=== PATIENT | female | born 1965 | race Caucasian/White ===

== ENCOUNTER 2017-10-05 09:20 | Day surgery (SDC) | payer OTHER ==
[2017-10-05] MEDS: NS 1,000 ML IV (11:01)
[2017-10-05] MEDS ORDERED: LIDOCAINE 2% INJ 100 MG/5 ML SDV (FOR ANES.) As Ordered (11:27)
[2017-10-05] MEDS ORDERED: PROPOFOL 200 MG/20 ML VIAL As Ordered ×2 (11:27→11:34)
[2017-10-05] MEDS ORDERED: ONDANSETRON 4MG/2ML VIAL (J2405) IV (12:00)
== END 2017-10-05 12:13 | disposition home or self-care (01) ==
LOC: M OPP 09:20
DX: R19.4 Change in bowel habit (principal); R19.7 Diarrhea, unspecified; K64.0 First degree hemorrhoids; K57.30 Diverticulosis of large intestine without perforation or abscess without bleeding; K21.9 Gastro-esophageal reflux disease without esophagitis; R12 Heartburn; E78.5 Hyperlipidemia, unspecified; F41.9 Anxiety disorder, unspecified; Z87.442 Personal history of urinary calculi; F17.210 Nicotine dependence, cigarettes, uncomplicated; Z88.2 Allergy status to sulfonamides; Z79.899 Other long term (current) drug therapy; Z80.3 Family history of malignant neoplasm of breast
CPT/HCPCS: 45380

== ENCOUNTER → 2018-09-01 | Outpatient (CLI) | payer OTHER ==
[~2018-09-01] MED LIST: EFFE150C2 PO
--- NOTE | 2018-09-01 12:00 | REPMRS ---
Patient History The patient states she had a clinical breast exam in 08/2018. Patient is postmenopausal. Family history of breast cancer at age 60 in mother, breast cancer at age 50 in sister, breast cancer at age 50 or over in maternal aunt. Benign stereotatic breast biopsy of the right breast, April 28, 2012. No Hormone Replacement Therapy Patient's BMI is 21.7. 3D TOMOSYNTHESIS WAS PERFORMED. Digital Woman Screen Mammo: September 01, 2018 - Exam #: [id number] Bilateral CC and MLO view(s) were taken. Technologist: Dafne Alexandra, Technologist Prior study comparison: April 26, 2015, digital woman screen mammo performed at [facility]. December 22, 2012, right breast digital mammo diagnostic unilateral, performed at [facility]. FINDINGS: The breast tissue is heterogeneously dense. This may lower the sensitivity of mammography. There has been no change in the appearance of the mammogram from the prior studies. There is a moderate amount of residual fibroglandular tissue which is fairly symmetric. There is no interval development of dominant mass, areas of architectural distortion, or clustered microcalcification typical of malignancy. Assessment: BI-RADS/ACR category 1 mammogram. Negative Mammogram. Recommendation Routine screening mammogram in 1 year (for women over age 40). This mammogram was interpreted with the aid of an FDA-approved computer-aided dectection system. THE LIFETIME RISK OF BREAST CANCER IS 22.8%, THEREFORE SUPPLEMENTAL SCREENING MRI OF THE BREASTS IS RECOMMENDED IN 6 MONTHS. Electronically Signed By: Owen Rojas MD 09/01/18 1200
== END ==
LOC: M WHC 09:35
PROVIDERS: ATTEND Nurse Practitioner Women's Health
DX: Z12.31 Encounter for screening mammogram for malignant neoplasm of breast (principal); Z80.3 Family history of malignant neoplasm of breast

== ENCOUNTER → 2018-09-01 | Outpatient (REF) | payer OTHER ==
[2018-09-04 00:07] LABS: HPV HYBRID CAPTURE II Negative (Negative)
== END ==
LOC: M SFHCWAGY 13:09
PROVIDERS: ATTEND Nurse Practitioner Women's Health
DX: Z12.4 Encounter for screening for malignant neoplasm of cervix (principal)

== ENCOUNTER → 2018-10-14 | Outpatient (REF) | payer OTHER | LOC: M SFHCWAGY 10:48 | PROVIDERS: ATTEND Nurse Practitioner Women's Health | DX: N83.202 Unspecified ovarian cyst, left side (principal) ==

== ENCOUNTER → 2018-10-14 | Outpatient (CLI) | payer OTHER ==
--- NOTE | 2018-10-14 13:09 | REP ---
REASON: History of left ovarian cyst. COMPARISON: None. Transvesical and transvaginal imaging was obtained. The uterus measures 6.5 x 2.3 x 3.0 cm. The parenchymal echo pattern is within normal limits. The endometrial echo complex is within normal limits measuring 3 mm in its greatest thickness. The right ovary measures 1.9 x 1.2 x 1.6 cm and is within normal limits with an RI of 0.53. The left ovary measures 3.9 x 2.8 x 4.5 cm. Within the left ovary there is a 4.7 x 4.6 x 3.4 cm sized anechoic structure which exhibits posterior wall enhancement and increased through transmission. A small hypoechoic nodule was seen along the posterior cyst wall measuring 7 mm. No marko papillary projections or thick internal septations were identified. The left ovarian RI is 0.55. The urinary bladder measures 9.0 x 5.0 x 9.0 cm. IMPRESSION: There is a left ovarian cyst as described above. A 2 month followup examination is recommended to ensure resolution. I see the reason for the exam is left ovarian cyst, however, there are no prior examinations that I have to compare to this study. If there is an outside prior exam showing a left ovarian cyst which is 2 months old or older, then I would recommend button grader consultation at this time with pre and post gadolinium enhanced pelvic MRI. Electronically Signed by Santos Mello DO 10/14/2018 01:18 P
== END ==
LOC: M RAD 11:30
PROVIDERS: ATTEND Physician Assistant Medical
DX: N83.202 Unspecified ovarian cyst, left side (principal)

== ENCOUNTER → 2019-02-08 | Outpatient (CLI) | payer OTHER ==
--- NOTE | 2019-02-08 13:59 | REP ---
PELVIC SONOGRAPHY: HISTORY: Left ovary cyst. Comparison pelvic sonography October 14, 2018 several 4.7 cm left ovarian cyst. FINDINGS: Transabdominal and endovaginal scanning are performed. Uterine dimensions remain normal at 7.2 x 2.3 x 3.6 cm. Endometrial echo is 0.3 cm thick. No focal uterine mass is seen. There are a few calcifications noted in the uterine myometrium as before. A normal right ovary seen measuring 2.2 x 1.1 x 1.2 cm. Doppler flow was observed in the right ovary with resistive index 0.63. Left ovary dimensions are 4.8 x 3.0 x 5.1 cm. Flow was observed by Doppler in the left ovary with resistive index 0.67. The left ovary contains a 4.1 x 3.2 x 4.7 cm cyst. There is subtle wall thickening and irregularity. No ascites is seen. IMPRESSION: Complex 4.7 cm cystic lesion again seen left ovary. Persisting, unchanged from the comparison study. Neoplastic cystic lesion is not excluded. Electronically Signed by Dipak Kinsey MD 02/08/2019 03:32 P
== END ==
LOC: M RAD 10:56
PROVIDERS: ATTEND Nurse Practitioner Women's Health
DX: N83.202 Unspecified ovarian cyst, left side (principal)

== ENCOUNTER → 2019-02-18 | Outpatient (CLI) | payer OTHER ==
[~2019-02-18] MED LIST changes: +PROHANCE 279.3MG/ML 5ML VIAL (A9576) As Ordered ONE
--- NOTE | 2019-02-18 13:56 | REP ---
MRI PELVIS WITH AND WITHOUT CONTRAST: TECHNIQUE: Multiple sequences obtained in the axial, coronal, and sagittal planes prior to and following the intravenous administration of 10 mL ProHance. Correlation made with prior ultrasound 02/08/2019. There is an oval cyst in the anterior aspect of the left adnexa. This measures approximately 3.9 x 4.3 x 5.0 cm. A relatively thin enhancing septation is seen anteriorly in the left portion of the cyst. The cyst is not hemorrhagic. There is mild diffuse enhancement of a slightly thickened wall. There is asymmetric mild wall thickening and enhancement adjacent to the septation. This is anteriorly on the left side of the cyst. No other cystic or solid pelvic mass is seen. There is no adenopathy or free fluid in the pelvis. Uterus is deviated to the right of midline. Uterine length is approximately 6.8 cm. Endometrium is 2 mm in thickness with no endometrial fluid collection. Normal marrow signal is seen of the visualized osseous structures. IMPRESSION: Left adnexal cyst measures 3.9 x 4.3 x 5.0 cm. There is no hemorrhagic component. Relatively thin enhancing septation is seen in the anterior lateral portion of the cyst with mild adjacent wall thickening of the cyst. Elsewhere, there is relatively thin rim enhancement of the cyst. Since this is not a completely simple cyst, I would recommend surgical excision. No other evidence of mass, adenopathy, or free fluid in the pelvis. Electronically Signed by Owen Rojas MD 02/18/2019 05:14 P
== END ==
LOC: M RAD 10:07
PROVIDERS: ATTEND Nurse Practitioner Women's Health
DX: N83.202 Unspecified ovarian cyst, left side (principal)
CPT/HCPCS: 72197; A9576

== ENCOUNTER → 2019-04-14 | Outpatient (CLI) | payer OTHER ==
--- NOTE | 2019-04-14 16:52 | REP ---
Bilateral breast MRI study without and with IV gadolinium: History: Positive family history of breast carcinoma. Dense breast tissue on mammography. Comparison mammography September 01, 2018. Technique: Three Ria MRI imaging was performed with a dedicated breast coil. Axial, coronal, and sagittal T1 and T2-weighted scans were obtained with and without fat saturation in the usual fashion. The study includes dynamically acquired post gadolinium enhanced imaging subtraction imaging. Maximal intensity projection and multiplanar re-formation imaging is included as well. The study was interpreted with the aid of [employer], an FDA approved computer-aided detection (CAD) software program, on a dedicated breast MRI work station. The gadolinium enhancement dose is 10 ml of intravenous ProHance. Findings: There is a mild pattern of fibroglandular tissue bilaterally. There is minimal background parenchymal enhancement. There is no evidence of axillary adenopathy or significant breast cystic change. No suspicious focal abnormality is seen on high-resolution pre or postcontrast T1 and T2-weighted scans. Dynamically acquired sequential post contrast images show no suspicious focus of enhancement and/or washout in either breast to suggest malignancy. Subtraction images show no additional abnormality. Impression: BIRADS category 1 negative findings. Patient's whose lifetime breast cancer risk assessment is greater than 20% merit annual screening breast MRI scanning. This in addition to annual screening mammography. Electronically Signed by Dipak Kinsey MD 04/14/2019 05:07 P
== END ==
LOC: M RAD 14:21
PROVIDERS: ATTEND Nurse Practitioner Women's Health
DX: R92.2 Inconclusive mammogram (principal); Z80.3 Family history of malignant neoplasm of breast
CPT/HCPCS: A9576; C8908

== ENCOUNTER → 2020-01-18 | Outpatient (CLI) | payer OTHER ==
[~2020-01-18] MED LIST changes: -PROHANCE 279.3MG/ML 5ML VIAL (A9576) As Ordered ONE
--- NOTE | 2020-01-18 14:52 | REPMRS ---
Patient History The patient states she has not had a clinical breast exam in over a year. Family history of breast cancer at age 60 in mother, breast cancer at age 50 in sister, breast cancer at age 50 or over in maternal aunt. Benign stereotatic breast biopsy of the right breast, April 28, 2012. No Hormone Replacement Therapy Patient's BMI is 21.7. 3D TOMOSYNTHESIS WAS PERFORMED. Volpara breast density b. Digital Woman Screen Mammo: January 18, 2020 - Exam #: [id number] Bilateral CC and MLO view(s) were taken. Technologist: Dafne Alexandra, Technologist Prior study comparison: September 01, 2018, bilateral digital woman screen mammo performed at [facility]. April 26, 2015, digital woman screen mammo performed at [facility]. FINDINGS: There are scattered fibroglandular densities. There has been no change in the appearance of the mammogram from the prior studies. There is a mild amount of residual fibroglandular tissue which is fairly symmetric. There is no interval development of dominant mass, architectural distortion, or clustered microcalcification suggestive of malignancy. Assessment: BI-RADS/ACR category 1 mammogram. Negative Mammogram. Recommendation Routine screening mammogram in 1 year (for women over age 40). This mammogram was interpreted with the aid of an FDA-approved computer-aided dectection system. THE LIFETIME RISK OF BREAST CANCER IS 22.3%, THEREFORE SUPPLEMENTAL SCREENING MRI OF THE BREASTS IS RECOMMENDED IN 6 MONTHS. Electronically Signed By: Owen Rojas MD 01/18/20 [id number]
== END ==
LOC: M WHC 14:07
PROVIDERS: ATTEND Nurse Practitioner Adult Health
DX: Z12.31 Encounter for screening mammogram for malignant neoplasm of breast (principal); Z15.01 Genetic susceptibility to malignant neoplasm of breast; Z80.3 Family history of malignant neoplasm of breast; Z86.018 Personal history of other benign neoplasm

== ENCOUNTER → 2021-05-09 | Outpatient (CLI) | payer OTHER | LOC: M PLAIMG 09:10 | PROVIDERS: ATTEND Nurse Practitioner Family | DX: M54.31 Sciatica, right side (principal) ==

== ENCOUNTER → 2021-05-09 | Outpatient (CLI) | payer OTHER | LOC: M PLAIMG 09:17 | PROVIDERS: ATTEND Nurse Practitioner Family | DX: R31.9 Hematuria, unspecified (principal) ==

== ENCOUNTER → 2023-04-16 | Outpatient (CLI) | payer OTHER ==
[~2023-04-16] MED LIST changes: -EFFE150C2 PO; +EFFE150C3 PO
== END ==
LOC: M WHC 12:50
PROVIDERS: ATTEND Registered Nurse
DX: Z12.31 Encounter for screening mammogram for malignant neoplasm of breast (principal)

== ENCOUNTER → 2023-04-16 | Outpatient (CLI) | payer OTHER ==
[2023-04-16 15:47] LABS: HEMATOCRIT 41.4 % (36.0-47.0); HEMOGLOBIN 13.6 g/dl (12.0-15.5); MEAN CORPUSCULAR HEMOGLOBIN 29.8 pg (27.0-33.0); MEAN CORPUSCULAR HGB CONC 32.9 g/dl (32.0-36.5); MEAN CORPUSCULAR VOLUME 90.8 fl (80.0-96.0); PLATELET COUNT, AUTOMATED 299 10^3/uL (150-450); RED BLOOD COUNT 4.56 10^6/uL (4.00-5.40); WHITE BLOOD COUNT 10.1 10^3/uL (4.0-10.0)
[2023-04-16 16:17] LABS: ALBUMIN 3.6 G/DL (3.2-5.2); ALKALINE PHOSPHATASE 105 U/L (46-116); ALT/SGPT 18 U/L (7.0-40); AST/SGOT 11 U/L (<34); BILIRUBIN,TOTAL 0.3 MG/DL (0.3-1.2); BLOOD UREA NITROGEN 16 MG/DL (9-23); CALCIUM LEVEL 9.2 MG/DL (8.3-10.6); CARBON DIOXIDE LEVEL 29 MMOL/L (20-31); CHLORIDE LEVEL 106 MMOL/L (98-107); CHOLESTEROL LEVEL 234 MG/DL (<200); CHOLESTEROL RISK RATIO 3.57 (<5); CREATININE FOR GFR 0.78 MG/DL (0.55-1.30); GLOMERULAR FILTRATION RATE > 60.0 (>45); GLUCOSE, FASTING 92 MG/DL (74-106); HDL CHOLESTEROL 65.4 MG/DL (>40); LDL CHOLESTEROL 131.8 MG/DL (<100); NON-HDL-C 168.6 MG/DL; POTASSIUM SERUM 4.3 MMOL/L (3.5-5.1); SODIUM LEVEL 138 MMOL/L (136-145); TOTAL PROTEIN 6.4 G/DL (5.7-8.2); TRIGLYCERIDES LEVEL 184 MG/DL (<150)
[2023-04-16 16:26] LABS: HEMOGLOBIN A1c 5.4 % (4.0-6.0)
== END ==
LOC: M PLALAB 12:56
PROVIDERS: ATTEND Registered Nurse
DX: E78.2 Mixed hyperlipidemia (principal); R73.03 Prediabetes; Z79.899 Other long term (current) drug therapy